=== PATIENT | male | born 1945 | race Caucasian/White ===

== ENCOUNTER 2021-10-27 10:58 | Inpatient (IN) | payer MEDICARE, OTHER ==
[~2021-10-27] VITALS: Ht 180.3 cm; Wt 100.2 kg
[~2021-10-27 10:58] MED LIST: DOXA2TAB2 PO; HYDR12.51 PO; LOT20 PO; METO25TA PO; NITR0.4T2 SL; SIMV-31 PO; [UNRECOGNIZED DRUG - CODE] PO
[2021-10-27 11:04] VITALS: BP 125/59
--- NOTE | 2021-10-27 11:04 | NUR ---
pt placed in wheelchair with nc 2L, saturation at 99%. pt placed in lobby at this time
--- NOTE | 2021-10-27 11:25 | NUR ---
76 y/o male biba from home, c/o gen weak 2 days. skin is pink/warm/dry. a&o x4, ambulates with assist, pt is in wheelchair at this time. lungs clear bl, heart rate even and regular. pt denies dysuria, hematuria, urinary frequency or retention, or anyone sick in the household with the same symptoms. pt denies any fever, cp, sob, or cough at this time. pt states pain is 0/10 at this time. vss. ermd made aware of pt. pmh: thyroid disease, cardiac disease, open heart sx, htn, dm2 allergy: penicillin
[2021-10-27 13:20] LABS: BASOPHILS % (AUTO) 0.4 % (0.0-2.0); EOSINOPHILS % (AUTO) 0.7 % (0.0-4.0); HEMATOCRIT 29.1 % (36-52); LYMPHOCYTES % (AUTO) 16.6 % (20.5-51.1); MEAN CORPUSCULAR HEMOGLOBIN 22 pg (27-31); MEAN CORPUSCULAR HGB CONC 31 g/dL (33-37); MEAN CORPUSCULAR VOLUME 72.6 fL (80-94); MONOCYTES # (AUTO) 0.4 K/uL (0.8-1.0); MONOCYTES % (AUTO) 6.9 % (1.7-9.3); NEUTROPHILS # (AUTO) 4.4 K/uL (1.8-7.7); NEUTROPHILS % (AUTO) 75.4 % (42.2-75.2); PLATELET COUNT (AUTO) 181 K/uL (140-450); RED BLOOD CELL COUNT(AUTO) 4.01 MIL/uL (4.20-6.10); RED CELL DISTRIBUTION WIDTH 16.3 % (11.6-13.7); WHITE BLOOD COUNT (AUTO) 5.8 K/uL (4.8-10.8)
--- NOTE | 2021-10-27 13:27 | NUR ---
pt unable to urinate at this time. will attempt at a later time. provided with urinal at bedside.
[2021-10-27 13:42] LABS: PROTHROMBIN TIME 10.3 secs (10.8-13.4)
[2021-10-27 13:59] LABS: CHLORIDE 98 mmol/L (98-107); POTASSIUM 4.8 mmol/L (3.5-5.1); SODIUM SERUM 138 mmol/L (136-145)
[2021-10-27 14:04] LABS: ANION GAP 15.1 (8-16); ASPARTATE AMINOTRANSFERASE 12 U/L (15-37); CARBON DIOXIDE 29.7 mmol/L (21-32); GLUCOSE 102 mg/dL (74-106); TOTAL BILIRUBIN 0.4 mg/dL (0.0-1.0); UREA NITROGEN, BLOOD 52 mg/dL (7-18)
[2021-10-27 14:05] LABS: ALBUMIN 3.6 g/dL (3.4-5.0)
[2021-10-27 14:57] LABS: BILIRUBIN,URINE NEGATIVE (NEGATIVE); BLOOD, URINE NEGATIVE (NEGATIVE); COLOR,URINE YELLOW (YELLOW); LEUKOCYTE ESTERASE ,URINE 2+ (NEGATIVE); NITRITE, URINE NEGATIVE (NEGATIVE); UGLUCOSE NEGATIVE (NEGATIVE)
[2021-10-27 15:10] LABS: APPEARANCE,URINE HAZY (CLEAR)
[2021-10-27 15:20] LABS: RBC,URINE NONE SEEN /HPF (0-5); WBC,URINE 80-100 /HPF (0-5)
--- NOTE | 2021-10-27 16:06 | NUR ---
PATIENT GIVEN JUICE PER ERMD VERBAL OKAY. PT TOLERATED WELL
[2021-10-27] MEDS ORDERED: ASPI-1822 PO (18:04)
[2021-10-27] MEDS ORDERED: SYN.05 PO (18:04)
[2021-10-27] MEDS ORDERED: SPIR50TA PO (18:04)
[2021-10-27] MEDS ORDERED: POTASSIUM CHLORIDE 10 MEQ TABER PO PRN (18:15)
[2021-10-27] MEDS ORDERED: KCL 20 MEQ/WATER INJ PREMIX 200 ML IV PRN (18:15)
[2021-10-27] MEDS ORDERED: HYDROcodone/APAP 5/325 MG 1 TAB TAB PO PRN (18:15)
[2021-10-27] MEDS ORDERED: ACETAMINOPHEN 325 MG TAB PO PRN (18:15)
[2021-10-27] MEDS ORDERED: MAGNESIUM OXIDE 400 MG TAB PO PRN (18:15)
[2021-10-27] MEDS ORDERED: ONDANSETRON 4 MG/2 ML VIAL IVP PRN (18:15)
[2021-10-27] MEDS ORDERED: MORPHINE SULFATE 4 MG/ML SYR IVP PRN (18:15)
[2021-10-27] MEDS ORDERED: MAG SULF 2000 MG/WATER PREMIX 50 ML IV PRN (18:15)
[2021-10-27] MEDS ORDERED: LEVOFLOXACIN 500 MG/D5W PREMIX 100 ML IV SCH (18:37)
--- NOTE | 2021-10-27 19:22 | NUR ---
PATIENT IN HIGH FOWLERS WITH EYES OPEN AND TALKING ON THE PHONE. NO S/S OF DISTRESS NOTED. VS WNL. DENIES C/P, SOB, DIFFICULTY BREATHING, AND PAIN. PATIENT AAOX4, AMBULATORY WITH A STEADY GAIT, ANTIBX RUNNING THROUGH LEFT AC 20 GAUGE- PATENT LINE WITH NO REDNESS, SWELLING, WARMTH, AND DISCHARGE. ATTACHED TO THE MONITOR, SAFETY MEASURES ARE IN PLACE, AND WILL CONTINUE TO MONITOR PATIENT.
[2021-10-27] MEDS: LORazepam 1 MG TAB PO PRN (23:03)
--- NOTE | 2021-10-28 04:02 | NUR ---
PATIENT ASKED FOR HELP TO GET OUT OF BED TO URINATE IN URINAL. PATIENT ABLE TO TOLERATE WELL. AAOX4. GCS15
--- NOTE | 2021-10-28 07:20 | NUR ---
Report and continution of care received from VIOLETTA Parrish.
--- NOTE | 2021-10-28 07:20 | NUR ---
Pt report given to Kaz SHIPLEY. Transfer of care at this time.
[2021-10-28 07:50] LABS: ANION GAP 12.7 (8-16); CARBON DIOXIDE 30.3 mmol/L (21-32); CHLORIDE 99 mmol/L (98-107); CREATININE 1.8 mg/dL (0.6-1.3); GLUCOSE 105 mg/dL (74-106); SODIUM SERUM 137 mmol/L (136-145); UREA NITROGEN, BLOOD 48 mg/dL (7-18)
--- NOTE | 2021-10-28 07:56 | NUR ---
Report and transfer of care given to VIOLETTA Falk
--- NOTE | 2021-10-28 08:00 | NUR ---
RECEIVED PT IN [facility] AOX4. DENIES PAIN OR DISCOMFORT. AFIB ON MONITOR. IV INTACT AND PATENT LEFT AC #20GUAGE SL. NAD. SAFETY MAINTAINED
[2021-10-28 08:04] LABS: BASOPHILS % (AUTO) 0.5 % (0.0-2.0); EOSINOPHILS # (AUTO) 0.1 K/uL (0-0.4); EOSINOPHILS % (AUTO) 1.4 % (0.0-4.0); HEMATOCRIT 29.4 % (36-52); HEMOGLOBIN 9.3 g/dL (12.0-18.0); LYMPHOCYTES # (AUTO) 0.9 K/uL (2.0-11.5); LYMPHOCYTES % (AUTO) 22.8 % (20.5-51.1); MEAN CORPUSCULAR HEMOGLOBIN 23 pg (27-31); MEAN CORPUSCULAR HGB CONC 32 g/dL (33-37); MEAN CORPUSCULAR VOLUME 71.6 fL (80-94); MONOCYTES # (AUTO) 0.3 K/uL (0.8-1.0); MONOCYTES % (AUTO) 7.5 % (1.7-9.3); NEUTROPHILS # (AUTO) 2.8 K/uL (1.8-7.7); NEUTROPHILS % (AUTO) 67.8 % (42.2-75.2); PLATELET COUNT (AUTO) 162 K/uL (140-450); RED BLOOD CELL COUNT(AUTO) 4.11 MIL/uL (4.20-6.10); RED CELL DISTRIBUTION WIDTH 16.1 % (11.6-13.7); WHITE BLOOD COUNT (AUTO) 4.1 K/uL (4.8-10.8)
[2021-10-28 09:30] VITALS: BP 116/61
--- NOTE | 2021-10-28 09:30 | NUR ---
PT WAS TRANSFERRED TO THE UNIT VIA GURNEY. PT IS AWAKE AND ALERT. ANSWERING QUESTIONS APPROPRIATELY. ON 2L O2 NC WITH BREATHING UNLBAORED. VS ARE STABLE. PT IS AMBULATORY WITH ASSIST. WOUND ON BILAT LE NOTED WITH DRESSING IN PLACE. WILL TAKE PICTURE SHORTLY. PT IS STABLE. PLAN OF CARE DISCUSSED.
--- NOTE | 2021-10-28 11:30 | NUR ---
PT IS AWAKE, NO DISTRESS NOTED. ON 2L O2 NC WITH BREATHING UNLABORED. DENIES ANY PAIN. BED IS IN THE LOWEST POSITION AND CALL LIGHT WITHIN REACH. WILL CONTINUE TO MONITOR.
[2021-10-28 12:00] VITALS: BP 116/60
--- NOTE | 2021-10-28 13:07 | NUR ---
DC PLANNING: THE PATIENT PRESENTED FROM HOME WITH C/O GENERALIZED WEAKNESS X 2 DAYS. H/O CABG, DM, CARDIAC DISEASE, HTN, PANCREATITIS, CAD. CXR SHOWS CARDIOMEGALY, ORDERS FOR URINE CULTURES. STARTED ON LEVAQUIN IV AND ATIVAN. ROSA SPOKE WITH THE PATIENT AT BEDSIDE AND CONFIRMED HIS ADDRESS AND PHONE NUMBER. HE LIVES IN A SECOND STORY APARTMENT WITH A FRIEND, AAKASH SCRUGGS ([phone]). HE STATES THAT AAKASH HELPS HIM WITH SHOPPING AND GENERAL CARE BUT WORKS AT NIGHT. HE ALSO HAS CONTACTS OF HIS NIECE IN [place], [place], PHONE [phone], AND HIS BROTHER OSVALDO IN [place], PHONE NUMBER [phone]. HE STATES THAT HE AMBULATES IN HIS APARTMENT USING A FWW AND HAS A GLUCOMETER BUT DOES NOT USE IT. THE PATIENT HAS BEEN ON SERVICE WITH [facility] WHICH THE PATIENT STATED WAS HOME HEALTH. ROSA SPOKE WITH [facility], HE WAS ON SERVICE BECAUSE OF HIS CARDIAC DISEASE BUT REVOKED HOSPICE WHO THEN HAD HIS DME PICKED UP INCLUDING O2. THE PATIENT SEES HIS PMD DR GLOVER INFREQUENTLY PER HIS STATEMENT AND USES A SHUTTLE ARRANGED THROUGH HIS INSURANCE. DC NEEDS OF HOME HEALTH, WILL NEED TO ASSESS FOR NEED FOR HOME O2. ROSA WILL FOLLOW. Addendum: 10/29/21 at 1102 by Ashly Gloria CM DC PLANNING: ROSA SPOKE WITH THE PATIENTS BROTHER OSVALDO AND CONFIRMED THE PATIENTS LIVING SITUATION. OSVALDO IS THE PATIENTS DPOA AND WILL ASSIST HIM IN NOVEMBER WITH REINSTATING HIS [facility] INSURANCE PATIENT BECAME MEDICARE UNDER HOSPICE, WHICH HAS BEEN REVOKED. ROSA LEFT FOR RADHA GUNDERSON, ROSA FOR [facility] TO GET CLARIFICATION ON PATIENTS DME THEY STATED YESTERDAY THAT THEY PICKED UP ALL DME ORDERED THROUGH THEM. ROSA ALSO ASKED FOR RA SATS WHEN PATIENT IS OOB WITH P.T. TO DETERMINE NEED FOR HOME O2. ROSA SPOKE WITH THE PATIENT AT BEDSIDE AND ENDORSED ABOVE, ROSA WILL FOLLOW. Addendum: 10/29/21 at 1419 by Ashly Gloria CM DC PLANNING: ROSA SPOKE WITH [facility], THEY HAVE NOT YET ARRANGED FOR LIME SPREADER OF PATIENTS DME INCLUDING 3 IN 1, SUCTION MACHINE, NEBULIZER MACHINE, CONCENTRATOR, E-TANKS AND HOSPITAL BED. ROSA ALSO SPOKE WITH THE PATIENT WHO STATES HE NEEDS O2 AND HOSPITAL BED AND HAS NO OTHER BED. HE HAS ALSO BEEN ON SERVICE WITH [facility] IN THE PAST. ROSA SPOKE WITH [facility] ([phone]), THEY ARE UNABLE TO SEE THE PATIENT FOR P.T. BECAUSE HE LIVES IN [place]. ROSA SPOKE WITH KERLINE AT [facility] TO DISCUSS CRITERIA FOR HOME O2 AND HOSPITAL BED THE PATIENT STATES THESE ARE THE ONLY ITEMS HE NEEDS. KERLINE GAVE CM VERBIAGE FOR ORDERS WHICH WERE ENTERED AND FAXED TO [facility]. ROSA WILL COORDINATE WITH [facility] AND [facility] REGARDING DME LIME SPREADER AND DELIVERY. ROSA SPOKE WITH THE PATIENT AT BEDSIDE AND ENDORSED THIS INCLUDING REFERRAL TO [facility] CANNOT ACCOMMODATE. PATIENT IS IN AGREEMENT WITH PLAN, ROSA WILL FOLLOW. Addendum: 10/30/21 at 1549 by Ashly Gloria CM DC PLANNING: PATIENT WILLING TO GO TO [facility], HAS BEEN AT [facility] IN THE PAST (LAST NOVEMBER). CORRECTION TO ROOMMATE AAKASH CISNEROS'S PHONE NUMBER [phone]. REFERRAL FAXED TO [facility]. ROSA HAS ASKED [facility] TO FAX MEDICARE JUSTIFICATION FORM FOR HOSPITAL BED MULTIPLE TIMES, FORM NOT YET RECEIVED. CM WILL FOLLOW Addendum: 10/30/21 at 1622 by Ashly Gloria CM DC PLANNING: ROSA F/U WITH [facility] ([phone]), PATIENT STILL BEING REVIEWED FOR ACCEPTANCE. ROSA WILL FOLLOW. Addendum: 10/30/21 at 1658 by Ashly Gloria CM DC PLANNING: PATIENT ACCEPTED [facility], PLEASE CALL FOR ROOM ASSIGNMENT. CM WILL FOLLOW.
--- NOTE | 2021-10-28 13:30 | NUR ---
PT'S LOWER EXTREMITIES BILAT ARE WRAPPED IN KERLIX UPON ADMISSION. KERLIX WAS REMOVED AND DRY/SCALY SKIN WAS NOTED DOWN TO THE TOES. CLOSED WOUND WAS CLEANSED WITH WOUND CARE CLEANSER SOLUTION AND PATTED DRY. LEFT CLOSED WOUND ISOLATION WASHER. PICTURE TAKEN AND PLACED IN THE CHART.
--- NOTE | 2021-10-28 15:31 | NUR ---
PATIENT HAS BEEN SCREENED AND CATEGORIZED HIGH NUTRITION RISK. PATIENT WILL BE SEEN WITHIN 1-2 DAYS OF ADMISSION. / REFERRAL RECEIVED FOR UNHEALED WOUNDS [address]
[2021-10-28 16:00] VITALS: BP 111/53
--- NOTE | 2021-10-28 16:00 | NUR ---
PT IS AWAKE, WATCHING TV. NO DISTRESS NOTED. BREATHING IS UNLABORED. IV IS INTACT AND PATENT. WILL MONITOR.
--- NOTE | 2021-10-28 19:40 | NUR ---
ENDORSED PT TO PERSONALIZED LIVING ASSISTANT NURSE FOR CONTINUITY OF CARE. PT IS STABLE. PLAN OF CARE DISCUSSED.
[2021-10-28 20:00] VITALS: BP 106/55
[2021-10-29] VITALS: BP 110/56
--- NOTE | 2021-10-29 01:08 | NUR ---
PATIENT AWAKE ALERT ROOM AIR SAT 99% TEMP 98 B/P 106/55. C/O OF GENERAL PAIN MEDICATED WITH MORPHINE 4 MG IVP 0 2330 PATIENT SLEEPING HAS 20 GA IN UPPER LEFT ARM.. PATIENT ON MONITOR A-FIB HEART RATE 58. NO DISTRESS NOTED.
[2021-10-29 04:00] VITALS: BP 112/58
[2021-10-29 06:54] LABS: BASOPHILS % (AUTO) 0.5 % (0.0-2.0); EOSINOPHILS # (AUTO) 0.1 K/uL (0-0.4); EOSINOPHILS % (AUTO) 1.8 % (0.0-4.0); HEMATOCRIT 28.5 % (36-52); HEMOGLOBIN 8.9 g/dL (12.0-18.0); LYMPHOCYTES # (AUTO) 1.2 K/uL (2.0-11.5); LYMPHOCYTES % (AUTO) 29.6 % (20.5-51.1); MEAN CORPUSCULAR HEMOGLOBIN 23 pg (27-31); MEAN CORPUSCULAR HGB CONC 31 g/dL (33-37); MEAN CORPUSCULAR VOLUME 72.7 fL (80-94); MONOCYTES # (AUTO) 0.4 K/uL (0.8-1.0); MONOCYTES % (AUTO) 9.4 % (1.7-9.3); NEUTROPHILS # (AUTO) 2.3 K/uL (1.8-7.7); NEUTROPHILS % (AUTO) 58.7 % (42.2-75.2); PLATELET COUNT (AUTO) 155 K/uL (140-450); RED BLOOD CELL COUNT(AUTO) 3.92 MIL/uL (4.20-6.10); RED CELL DISTRIBUTION WIDTH 16.7 % (11.6-13.7)
[2021-10-29 06:57] LABS: ANION GAP 9.5 (8-16); CARBON DIOXIDE 33.1 mmol/L (21-32); CHLORIDE 98 mmol/L (98-107); CREATININE 1.7 mg/dL (0.6-1.3); GLUCOSE 106 mg/dL (74-106); POTASSIUM 4.6 mmol/L (3.5-5.1); SODIUM SERUM 136 mmol/L (136-145); UREA NITROGEN, BLOOD 46 mg/dL (7-18)
--- NOTE | 2021-10-29 07:35 | NUR ---
RECEIVED BEDSIDE REPORT FROM WATERMASTER NURSE FOR CONTINUITY OF CARE. PT IS AWAKE AND ALERT, TALKING ON THE PHONE. BREATHING IS UNLABORED ON 2L O2 NC. CONTINENT OF THE BOWEL AND BLADDER WITH BEDSIDE COMMODE IN PLACE. NO PAIN NOTED AT THIS TIME. BILATERAL LE WOUNDS GADIEL. PT IS STABLE. PLAN OF CARE DISCUSSED.
[2021-10-29 08:00] VITALS: BP 117/48
[2021-10-29] MEDS: LEVOFLOXACIN 500 MG/D5W PREMIX 100 ML IV SCH (09:04)
--- NOTE | 2021-10-29 09:04 | NUR ---
PT RESTING ON BED, RESPIRATION EVEN, UNLABORED, ON 2L OXYGEN VIA NC. MEDICATION ADMINISTERED AT THIS TIME PER MD ORDER. PT TOLERATED WELL. CALL LIGHT WITHIN REACH. ALL SAFETY MEASURE IN PLACE, WILL CONTINUE TO MONITOR.
--- NOTE | 2021-10-29 11:00 | NUR ---
PT RESTING ON BED, ON 2L OXYGEN VIA NC, NO DISTRESS NOTED AT THIS TIME.
[2021-10-29 12:00] VITALS: BP 118/57
[2021-10-29] MEDS: POLYETHYLENE GLYCOL 17 GM/PKT PO SCH ×2 (12:20→21:00)
--- NOTE | 2021-10-29 13:00 | NUR ---
ON TELE MONITOR PT IS NOT LONGER BRADYCARDIC. HR IS 70 CONTROLLED AFIB.
--- NOTE | 2021-10-29 14:37 | NUR ---
10/29/21 RD INITIAL ASSESSMENT COMPLETED PLEASE REFER TO NUTRITION ASSESSMENT UNDER CARE ACTIVITY FOR ESTIMATED NUTRITIONAL NEEDS. 1. CONTINUE CARDIAC MECHANICAL SOFT DIET TOLERATED 2. RECOMMEND GLUCERNA BID FOR NUTRITION SUPPORT 3. RD TO FOLLOW-UP 7 DAYS, LOW RISK RORY [address]
--- NOTE | 2021-10-29 15:00 | NUR ---
PT RESTING ON BED, ON 2L OXYGEN VIA NC, NO DISTRESS NOTED. CALL LIGHT WITHIN REACH, WILL CONTINUE TO MONITOR.
[2021-10-29] MEDS ORDERED: NACL 0.9% 500 ML IV SCH (15:25)
[2021-10-29] MEDS ORDERED: NACL 0.9% 250 ML IV SCH (15:25)
[2021-10-29 16:00] VITALS: BP 126/44
[2021-10-29 16:11] LABS: APPEARANCE,URINE CLEAR (CLEAR); BILIRUBIN,URINE NEGATIVE (NEGATIVE); BLOOD, URINE NEGATIVE (NEGATIVE); COLOR,URINE YELLOW (YELLOW); LEUKOCYTE ESTERASE ,URINE 1+ (NEGATIVE); NITRITE, URINE NEGATIVE (NEGATIVE); UGLUCOSE NEGATIVE (NEGATIVE)
--- NOTE | 2021-10-29 16:21 | NUR ---
IV ON LEFT AC REMOVED DUE TO LEAKING, START NEW IV ON RIGHT HAND WITH 20G, PLUSH WITH NS, INTACT AND PATENT, START NS FLUID MD ORDERED.
[2021-10-29] MEDS: NACL 0.9% 1,000 ML IV SCH ×2 (16:25→21:38)
[2021-10-29 16:33] LABS: OTHER CASTS, URINE None Seen /LPF (None Seen); RBC,URINE 0-5 /HPF (0-5); WBC,URINE 0-5 /HPF (0-5)
--- NOTE | 2021-10-29 16:59 | NUR ---
P.T. NOTES P.T. EVAL COMPLETED; REFER TO EVAL FOR DETAILS.
--- NOTE | 2021-10-29 19:03 | NUR ---
PT RESTING ON BED, NO DISTRESS NOTED, CONTINUE 2L OXYGEN VIA NC, CALL LIGHT WITHIN REACH, WILL CONTINUE TO MONITOR.
--- NOTE | 2021-10-29 19:05 | NUR ---
PT POINT OF CARE DISCUSSED WITH NEXT SHIFT FOR CONTINUITY CARE.
--- NOTE | 2021-10-29 19:05 | NUR ---
ENDORSED PT TO CITY SECRETARY NURSE FOR CONTINUITY OF CARE. PT IS STABLE. PLAN OF CARE DISCUSSED.
[2021-10-29 20:00] VITALS: BP 105/60
--- NOTE | 2021-10-29 20:00 | NUR ---
PT LAYING IN BED IN SUPINE POSITION, HOB ELEVATED, NO SIGNS OF RESPIRATORY DISTRESS NOTED AT THIS TIME PT IS CURRENT SPO2 99% ON 2L N/C, NO LABORED BREATHING AND NO USE OF ACCESSORY MUSCLES NOTED. ANTERIOR AUSCULTATIONS REVEALED CLEAR BS THROUGHOUT ALL LUNG DALY, STRONG NON PRODUCTIVE COUGH NOTED, WILL CONTINUE TO MONITOR.
[2021-10-29] MEDS: LORazepam 1 MG TAB PO PRN (21:39)
[2021-10-30] VITALS: BP 110/66
--- NOTE | 2021-10-30 01:12 | NUR ---
PATIENT AWAKE ALERT NO C/O OF ACUTE PAIN A-FIB ON MONITOR. SAT 99% PATIENT TEMP 97.1 HAS NS INFUSING AT 70 HOUR. SITE 20 GA IN RIGHT ARM. PATIENT GIVEN MIRALAX HS DRINK WITH CUP OF WATER. PATIENT WITH NO SIGNS OF ACUTE DISTRESS.
[2021-10-30 04:00] VITALS: BP 106/70
[2021-10-30 07:02] LABS: BASOPHILS % (AUTO) 0.5 % (0.0-2.0); EOSINOPHILS # (AUTO) 0.1 K/uL (0-0.4); EOSINOPHILS % (AUTO) 1.3 % (0.0-4.0); HEMOGLOBIN 9.1 g/dL (12.0-18.0); LYMPHOCYTES # (AUTO) 1.2 K/uL (2.0-11.5); LYMPHOCYTES % (AUTO) 25.6 % (20.5-51.1); MEAN CORPUSCULAR HEMOGLOBIN 23 pg (27-31); MEAN CORPUSCULAR HGB CONC 31 g/dL (33-37); MEAN CORPUSCULAR VOLUME 73.1 fL (80-94); MONOCYTES # (AUTO) 0.5 K/uL (0.8-1.0); MONOCYTES % (AUTO) 10.6 % (1.7-9.3); NEUTROPHILS # (AUTO) 2.8 K/uL (1.8-7.7); PLATELET COUNT (AUTO) 146 K/uL (140-450); RED BLOOD CELL COUNT(AUTO) 3.97 MIL/uL (4.20-6.10); RED CELL DISTRIBUTION WIDTH 16.6 % (11.6-13.7); WHITE BLOOD COUNT (AUTO) 4.5 K/uL (4.8-10.8)
--- NOTE | 2021-10-30 07:25 | NUR ---
RECEIVED REPORT FROM WATER PURIFIER OPERATOR FOR CONTINUE CARE. PT RESTING ON BED, ALERT AND ORIENTED X4, ON 2L OXYGEN VIA NC, NO DISTRESS NOTED. IV ON RIGHT HAND INTACT AND PATENT, ALL SAFETY MEASURE IN PLACE, CALL LIGHT WITHIN REACH, WILL CONTINUE TO MONITOR.
[2021-10-30 07:37] LABS: ANION GAP 10.9 (8-16); CARBON DIOXIDE 29.6 mmol/L (21-32); CHLORIDE 102 mmol/L (98-107); CREATININE 1.7 mg/dL (0.6-1.3); GLUCOSE 113 mg/dL (74-106); POTASSIUM 4.5 mmol/L (3.5-5.1); SODIUM SERUM 138 mmol/L (136-145); UREA NITROGEN, BLOOD 40 mg/dL (7-18)
[2021-10-30 08:00] VITALS: BP 145/57
[2021-10-30] MEDS: POLYETHYLENE GLYCOL 17 GM/PKT PO SCH ×2 (08:21→20:35)
--- NOTE | 2021-10-30 11:05 | NUR ---
PT. ADMITTED WITH NO OPEN SKIN. BLE CHRONIC DRY SCALY SKIN RECOMMEND TO APPLY MOISTURIZER BID.
[2021-10-30] MEDS ORDERED: HYDRAGUARD CREAM TP ONE (11:24)
[2021-10-30 12:00] VITALS: BP 115/56
[2021-10-30] MEDS: NACL 0.45% 1,000 ML IV SCH (12:15)
[2021-10-30] MEDS: HYDRAGUARD CREAM TP SCH (12:38)
--- NOTE | 2021-10-30 12:38 | NUR ---
PT SITTING ON BED, ON 2L OXYGEN VIA NC, NO DISTRESS NOTED. HYDRA GUARD CREAM APPLIED TO BOTH LOWER LEG AND LOWER FEET AT ORDERED. HELL PROTECTOR PUT ON AND ELEVATE EACH FOOT WITH ONE PILLOW. CALL LIGHT WITHIN REACH.
--- NOTE | 2021-10-30 14:30 | NUR ---
PT RESTING ON BED WITH 2L OXYGEN VIA NC, NO DISTRESS NOTED. CALL LIGHT WITHIN REACH.
[2021-10-30 16:00] VITALS: BP 130/65
--- NOTE | 2021-10-30 17:06 | NUR ---
PT RESTING ON BED WATCHING TV, ON 2L OXYGEN VIA NC, NO DISTRESS NOTED. PT STATED HE STILL WAITING THE GRADUATE ASSISTANT ATHLETIC TRAINER TO TALK TO HIM REGARDING HIS PLACEMENT.
--- NOTE | 2021-10-30 18:41 | NUR ---
PT HAVING DINNER AT THIS TIME, ON 2L OXYGEN VIA NC, NO DISTRESS NOTED. CALL LIGHT WITHIN REACH
--- NOTE | 2021-10-30 19:02 | NUR ---
ENDORSED PT TO ACCOUNTING FILE CLERK NURSE FOR CONTINUITY OF CARE. PT IS STABLE. PLAN OF CARE DISCUSSED.
--- NOTE | 2021-10-30 19:10 | NUR ---
REPORT GIVEN TO [facility] NURSE FOR CONTINUITY CARE. POINT OF CARE DISCUSSED.
--- NOTE | 2021-10-30 19:15 | NUR ---
Received report from morning nurse. Patient resting on bed with O2 at 2L/NC, breathing even and unlabored. Patient alert and oriented, no complaints of pain. Will continue to monitor patient.
[2021-10-30 20:00] VITALS: BP 131/62
--- NOTE | 2021-10-30 22:07 | NUR ---
Patient resting on bed. Snacks given as requested. No further needs. Will continue to monitor.
[2021-10-31] VITALS: BP 149/61
[2021-10-31] MEDS: NACL 0.45% 1,000 ML IV SCH ×2 (01:21→15:55)
[2021-10-31] MEDS: HYDRAGUARD CREAM TP SCH ×2 (01:22→12:34)
--- NOTE | 2021-10-31 01:30 | NUR ---
Wound care done as ordered. No complaint of pain. New bag of 1/2 NS 1 L hung at the same rate of 75 ml/hr. No further needs.
[2021-10-31 04:00] VITALS: BP 126/53
--- NOTE | 2021-10-31 07:23 | NUR ---
PATIENT ENDORSED TO MORNING SHIFT RN. PATIENT RESTING COMFORTABLY ON BED, EYES CLOSED.
[2021-10-31 08:00] VITALS: BP 152/55
[2021-10-31] MEDS: LEVOFLOXACIN 500 MG/D5W PREMIX 100 ML IV SCH (08:39)
[2021-10-31] MEDS: POLYETHYLENE GLYCOL 17 GM/PKT PO SCH ×2 (08:44→21:00)
[2021-10-31] MEDS ORDERED: DEXTROSE 50% 50 ML SYR IVP PRN (08:50)
[2021-10-31] MEDS ORDERED: INSULIN LISPRO SLIDING SCALE 100 UNITS/ML VIAL SUBQ PRN (08:50)
[2021-10-31] MEDS ORDERED: LEVO750T51 PO (11:40)
--- NOTE | 2021-10-31 11:48 | NUR ---
SPOKE TO A[place]RIA FROM [facility] ON [phone] FOR DC TODAY. ALEXANDRIA STATED WILL CALL US BACK WITH TRANSPORT AND ETA, GAVE HER THE UNIT'S PHONE NUMBER, AWAITING FOR CALL BACK. .
[2021-10-31 12:00] VITALS: BP 128/51
--- NOTE | 2021-10-31 12:01 | NUR ---
SPOKE TO DR DOE REGARDING PER ALEXANDRIA WING [facility] THAT PT NEEDS A PROGRESS NOTE THAT PT IS OK TO DC TODAY SINCE PT DOES NOT QUALIFY THE [address] YET. PER DR DOE WE ARE GOING TO KEEP THE PT 1 MORE DAY AND DC TOMORROW. NOTIFIED ALEXANDRIA WITH 'S DECISION.
[2021-10-31] MEDS: BLOOD GLUCOSE MONITORING 1 DEV DEV FS SCH ×3 (12:20→21:00)
--- NOTE | 2021-10-31 14:56 | NUR ---
RECEIVED PHONE CALL FROM ALEXANDRIA [facility] REGARDING PT TRANSPORT IS SET UP TOMORROW BETWEEN [phone], [facility] BY [facility] [phone]
[2021-10-31 16:00] VITALS: BP 160/58
--- NOTE | 2021-10-31 19:30 | NUR ---
GIVEN BEDSIDE REPORT TO SECTION REPAIRER NURSE FOR CONTINUITY OF CARE
[2021-10-31 20:00] VITALS: BP 113/67
[2021-10-31] MEDS: LORazepam 1 MG TAB PO PRN (22:20)
[2021-11-01] VITALS: BP 116/67
[2021-11-01] MEDS: HYDRAGUARD CREAM TP SCH (01:30)
[2021-11-01 04:00] VITALS: BP 120/69
--- NOTE | 2021-11-01 04:06 | NUR ---
PATIENT IV CAME OUT OF HAND PATIENT REFUSE TO HAVE ANOTHER ONE PUT IN TONITE AT 0400 A.M. PATIENT STILL HAS NOT HAD A BOWEL MOVEMENT.
[2021-11-01] MEDS: BLOOD GLUCOSE MONITORING 1 DEV DEV FS SCH ×2 (06:51→11:30)
[2021-11-01 07:53] LABS: BASOPHILS % (AUTO) 0.3 % (0.0-2.0); EOSINOPHILS # (AUTO) 0.1 K/uL (0-0.4); EOSINOPHILS % (AUTO) 1.2 % (0.0-4.0); HEMOGLOBIN 8.7 g/dL (12.0-18.0); LYMPHOCYTES # (AUTO) 0.7 K/uL (2.0-11.5); LYMPHOCYTES % (AUTO) 14.7 % (20.5-51.1); MEAN CORPUSCULAR HEMOGLOBIN 23 pg (27-31); MEAN CORPUSCULAR HGB CONC 31 g/dL (33-37); MEAN CORPUSCULAR VOLUME 72.5 fL (80-94); MONOCYTES # (AUTO) 0.4 K/uL (0.8-1.0); MONOCYTES % (AUTO) 8.7 % (1.7-9.3); NEUTROPHILS # (AUTO) 3.4 K/uL (1.8-7.7); NEUTROPHILS % (AUTO) 75.1 % (42.2-75.2); PLATELET COUNT (AUTO) 158 K/uL (140-450); RED BLOOD CELL COUNT(AUTO) 3.86 MIL/uL (4.20-6.10); RED CELL DISTRIBUTION WIDTH 16.8 % (11.6-13.7); WHITE BLOOD COUNT (AUTO) 4.5 K/uL (4.8-10.8)
--- NOTE | 2021-11-01 08:04 | NUR ---
RECEIVED REPORT FROM MEDICAL RECORDS COORDINATOR NURSEJOSE: PT IN BED BREATHING EFFORTLESSLY USING O2 AT 2L VIA NC. NO IV ACCESS--NURSE REPORTED SAME WAS PULLED OUT DURING MEDICAL RECORDS COORDINATOR AND PT REFUSED TO HAVE IT REPLACED--SPOKE TO PT AND PER PT, "I'M GOING HOME TODAY SO NO NEED FOR IT." PT VERBALIZES COMFORT AND DENIES PAIN. CALL LIGHT IS WITHIN REACH.
[2021-11-01 08:10] LABS: ANION GAP 10.8 (8-16); CARBON DIOXIDE 28.3 mmol/L (21-32); CHLORIDE 107 mmol/L (98-107); CREATININE 1.4 mg/dL (0.6-1.3); GLUCOSE 111 mg/dL (74-106); POTASSIUM 5.1 mmol/L (3.5-5.1); SODIUM SERUM 141 mmol/L (136-145); UREA NITROGEN, BLOOD 28 mg/dL (7-18)
[2021-11-01] MEDS: POLYETHYLENE GLYCOL 17 GM/PKT PO SCH (09:00)
--- NOTE | 2021-11-01 09:43 | NUR ---
AM MED, HEPARIN, ADMIN, ORDERED. PT REFUSED MIRALAX AFTER JUST HAVING LARGE BM.
--- NOTE | 2021-11-01 11:30 | NUR ---
BLOOD GLUCOSE LEVEL 131, BY FINGERSTICK, NO INSULIN REQUIRED.
[2021-11-01 12:43] VITALS: BP 120/60
--- NOTE | 2021-11-01 13:30 | NUR ---
PT TRANSFERRED TO [facility] VIA AMBULANCE AFTER REPORT GIVEN TO NURSE CHAVES VIA PHONE. PT LEFT UNIT VIA GURNEY. VERBALIZED COMFORT AND DENIED PAIN. BREATHING EFFORTLESSLY WITH O2 IN PROGRESS VIA NC. DISCHARGE INSTRUCTION AND WRITTEN DISCHARGE PACKET PROVIDED.
== END 2021-11-01 13:38 | DRG 689 ==
LOC: MED 10:58 → MTU 21:23 → OBSVTOIN 10-29 17:10
PROVIDERS: ADMIT Student in an Organized Health Care Education/Training Program; ATTEND Student in an Organized Health Care Education/Training Program
DX: N39.0 Urinary tract infection, site not specified (principal); N17.0 Acute kidney failure with tubular necrosis; I25.10 Atherosclerotic heart disease of native coronary artery without angina pectoris; J45.909 Unspecified asthma, uncomplicated; I12.9 Hypertensive chronic kidney disease with stage 1 through stage 4 chronic kidney disease, or unspecified chronic kidney disease; E11.22 Type 2 diabetes mellitus with diabetic chronic kidney disease; N18.9 Chronic kidney disease, unspecified; D50.9 Iron deficiency anemia, unspecified; K59.00 Constipation, unspecified; E78.5 Hyperlipidemia, unspecified; Z20.822 Contact with and (suspected) exposure to COVID-19; E03.9 Hypothyroidism, unspecified; Z88.0 Allergy status to penicillin; Z88.8 Allergy status to other drugs, medicaments and biological substances; Z79.899 Other long term (current) drug therapy; Z95.1 Presence of aortocoronary bypass graft; Z79.82 Long term (current) use of aspirin; I95.9 Hypotension, unspecified
CPT/HCPCS: G0378 ×27; 36415; 36600; 71045; 76770; 80048; 80053; 81001; 82570; 82803; 82948; 83735; 83880; 84100; 84156; 84300; 84484; 85025; 85610; 85730; 87081; 87086; 87186; 93005; 97110; 97112; 97116; 97530; J1644; J1956; J2270; Q0092

== ENCOUNTER 2023-01-20 19:54 | Inpatient (IN) | payer OTHER ==
[~2023-01-20] VITALS: Ht 180.3 cm; Wt 103.4 kg
[2023-01-20 19:54] VITALS: BP 123/86; PULSE 106; RESP 18; TEMP 98; O2SAT 99
[~2023-01-20 19:54] MED LIST changes: +ASPI-1822 PO; +LEVO750T75 PO; +SPIR50TA PO; +SYN.05 PO
[2023-01-20 20:36] LABS: BASOPHILS % (AUTO) 0.1 % (0.0-2.0); EOSINOPHILS % (AUTO) 0.1 % (0.0-4.0); LYMPHOCYTES # (AUTO) 0.2 K/uL (2.0-11.5); LYMPHOCYTES % (AUTO) 3.4 % (20.5-51.1); MEAN CORPUSCULAR HEMOGLOBIN 23 pg (27-31); MEAN CORPUSCULAR HGB CONC 32 g/dL (33-37); MONOCYTES # (AUTO) 0.3 K/uL (0.8-1.0); MONOCYTES % (AUTO) 6.6 % (1.7-9.3); NEUTROPHILS # (AUTO) 4.1 K/uL (1.8-7.7); NEUTROPHILS % (AUTO) 89.8 % (42.2-75.2); PLATELET COUNT (AUTO) 179 K/uL (140-450); RED BLOOD CELL COUNT(AUTO) 2.36 MIL/uL (4.20-6.10); RED CELL DISTRIBUTION WIDTH 18.4 % (11.6-13.7); WHITE BLOOD COUNT (AUTO) 4.6 K/uL (4.8-10.8)
[2023-01-20 20:40] LABS: HEMOGLOBIN 5.4 g/dL (12.0-18.0)
[2023-01-20 20:54] LABS: ANION GAP 7.5 (8-16); CALCIUM 8.2 mg/dL (8.5-10.1); CARBON DIOXIDE 29.6 mmol/L (21-32); CHLORIDE 102 mmol/L (98-107); CREATININE 1.2 mg/dL (0.6-1.3); GLUCOSE 135 mg/dL (74-106); POTASSIUM 4.1 mmol/L (3.5-5.1); SODIUM SERUM 135 mmol/L (136-145); UREA NITROGEN, BLOOD 13 mg/dL (7-18)
[2023-01-20 21:19] LABS: INR 1.42 (0.8-1.2); PROTHROMBIN TIME 14.7 secs (10.8-13.4)
[2023-01-20] MEDS ORDERED: ACETAMINOPHEN 325 MG TAB PO PRN (23:20)
[2023-01-20] MEDS ORDERED: POTASSIUM CHLORIDE 10 MEQ TABER PO PRN (23:20)
[2023-01-20] MEDS ORDERED: KCL 20 MEQ IN 100 mL PREMIX 200 ML IV PRN (23:20)
[2023-01-20] MEDS ORDERED: MAG SULF 2000 MG/WATER PREMIX 50 ML IV PRN (23:20)
[2023-01-20] MEDS ORDERED: MAGNESIUM OXIDE 400 MG TAB PO PRN (23:20)
[2023-01-21] VITALS (14 sets, daily range): BP systolic 113–142; BP diastolic 67–78; PULSE 83–101; RESP 16–22; TEMP 96.7–97.8; O2SAT 94–100
[2023-01-21] MEDS: HYDROcodone/APAP 5/325 MG 1 TAB TAB PO PRN ×2 (04:19→15:45)
[2023-01-21 07:06] LABS: BASOPHILS % (AUTO) 0.1 % (0.0-2.0); EOSINOPHILS % (AUTO) 0.2 % (0.0-4.0); HEMATOCRIT 21.1 % (36-52); LYMPHOCYTES # (AUTO) 0.4 K/uL (2.0-11.5); LYMPHOCYTES % (AUTO) 8.1 % (20.5-51.1); MEAN CORPUSCULAR HEMOGLOBIN 24 pg (27-31); MEAN CORPUSCULAR HGB CONC 32 g/dL (33-37); MEAN CORPUSCULAR VOLUME 74.2 fL (80-94); MONOCYTES # (AUTO) 0.4 K/uL (0.8-1.0); MONOCYTES % (AUTO) 7.4 % (1.7-9.3); NEUTROPHILS # (AUTO) 4.6 K/uL (1.8-7.7); NEUTROPHILS % (AUTO) 84.2 % (42.2-75.2); PLATELET COUNT (AUTO) 178 K/uL (140-450); RED BLOOD CELL COUNT(AUTO) 2.85 MIL/uL (4.20-6.10); RED CELL DISTRIBUTION WIDTH 18.6 % (11.6-13.7); WHITE BLOOD COUNT (AUTO) 5.4 K/uL (4.8-10.8)
[2023-01-21 07:17] LABS: ANION GAP 7.1 (8-16); CARBON DIOXIDE 30.1 mmol/L (21-32); CHLORIDE 102 mmol/L (98-107); CREATININE 1.2 mg/dL (0.6-1.3); GLUCOSE 95 mg/dL (74-106); POTASSIUM 4.2 mmol/L (3.5-5.1); SODIUM SERUM 135 mmol/L (136-145); UREA NITROGEN, BLOOD 13 mg/dL (7-18)
[2023-01-21 07:23] LABS: MAGNESIUM 1.9 mg/dL (1.8-2.4)
[2023-01-21 07:25] LABS: HEMOGLOBIN 6.8 g/dL (12.0-18.0)
[2023-01-21] MEDS ORDERED: DEXTROSE 50% 50 ML SYR IVP PRN (08:10)
[2023-01-21] MEDS ORDERED: INSULIN LISPRO SLIDING SCALE 100 UNITS/ML VIAL SUBQ PRN (08:10)
[2023-01-21] MEDS: DEXT 5% / NACL 0.45% 1,000 ML IV SCH (08:30)
[2023-01-21] MEDS: PANTOPRAZOLE 40 MG INJ VIAL IVP SCH (08:30)
[2023-01-21] MEDS ORDERED: NITROGLYCERIN 0.4 MG TAB SL SCH (09:05)
[2023-01-21] MEDS: BLOOD GLUCOSE MONITORING 1 DEV DEV FS SCH ×3 (11:40→20:44)
[2023-01-21] MEDS: LACTULOSE 20 GM/30 ML UDC PO SCH ×2 (12:24→16:09)
[2023-01-21] MEDS: SENNA 8.6 MG TAB PO SCH ×3 (12:25→20:51)
[2023-01-21 16:18] LABS: HEMATOCRIT 23.9 % (36-52); HEMOGLOBIN 7.6 g/dL (12.0-18.0)
[2023-01-21] MEDS: hydroCHLOROthiazide 25 MG TAB PO SCH (20:47)
[2023-01-21] MEDS: DOXAZOSIN 2 MG TAB PO SCH (20:48)
[2023-01-21] MEDS: METOPROLOL 25 MG TAB PO SCH (20:48)
[2023-01-21] MEDS: FELODIPINE 2.5 MG PO SCH (20:50)
[2023-01-21] MEDS ORDERED: SIMVASTATIN 20 MG TAB PO SCH (21:00)
[2023-01-22] VITALS (16 sets, daily range): BP systolic 110–133; BP diastolic 56–70; PULSE 78–100; RESP 16–18; TEMP 96.9–98.7; O2SAT 95–100
[2023-01-22] MEDS: DEXT 5% / NACL 0.45% 1,000 ML IV SCH ×2 (01:34→06:37)
[2023-01-22] MEDS: LEVOTHYROXINE 0.05 MG TAB PO SCH (06:30)
[2023-01-22 06:33] LABS: BASOPHILS % (AUTO) 0.1 % (0.0-2.0); EOSINOPHILS % (AUTO) 0.3 % (0.0-4.0); HEMATOCRIT 23.3 % (36-52); HEMOGLOBIN 7.4 g/dL (12.0-18.0); LYMPHOCYTES # (AUTO) 0.4 K/uL (2.0-11.5); LYMPHOCYTES % (AUTO) 6.1 % (20.5-51.1); MEAN CORPUSCULAR HEMOGLOBIN 24 pg (27-31); MEAN CORPUSCULAR HGB CONC 32 g/dL (33-37); MEAN CORPUSCULAR VOLUME 75.7 fL (80-94); MONOCYTES # (AUTO) 0.4 K/uL (0.8-1.0); MONOCYTES % (AUTO) 6.3 % (1.7-9.3); NEUTROPHILS # (AUTO) 5.2 K/uL (1.8-7.7); NEUTROPHILS % (AUTO) 87.2 % (42.2-75.2); PLATELET COUNT (AUTO) 170 K/uL (140-450); RED BLOOD CELL COUNT(AUTO) 3.08 MIL/uL (4.20-6.10); RED CELL DISTRIBUTION WIDTH 18.3 % (11.6-13.7)
[2023-01-22] MEDS: BLOOD GLUCOSE MONITORING 1 DEV DEV FS SCH ×4 (06:35→20:43)
[2023-01-22 06:49] LABS: ANION GAP 9.5 (8-16); CALCIUM 8.1 mg/dL (8.5-10.1); CARBON DIOXIDE 28.4 mmol/L (21-32); CHLORIDE 104 mmol/L (98-107); CREATININE 1.2 mg/dL (0.6-1.3); GLUCOSE 108 mg/dL (74-106); POTASSIUM 3.9 mmol/L (3.5-5.1); SODIUM SERUM 138 mmol/L (136-145); UREA NITROGEN, BLOOD 12 mg/dL (7-18)
[2023-01-22 06:53] LABS: MAGNESIUM 1.9 mg/dL (1.8-2.4); PHOSPHORUS 3.3 mg/dL (2.5-4.9)
[2023-01-22] MEDS: PANTOPRAZOLE 40 MG INJ VIAL IVP SCH (08:28)
[2023-01-22] MEDS: DOXAZOSIN 2 MG TAB PO SCH ×2 (08:28→20:38)
[2023-01-22] MEDS: METOPROLOL 25 MG TAB PO SCH (08:29)
[2023-01-22] MEDS: hydroCHLOROthiazide 25 MG TAB PO SCH (08:29)
[2023-01-22] MEDS: LACTULOSE 20 GM/30 ML UDC PO SCH ×2 (08:29→08:52)
[2023-01-22] MEDS: BENAZEPRIL 20 MG TAB PO SCH (08:29)
[2023-01-22] MEDS: SENNA 8.6 MG TAB PO SCH ×2 (08:30→08:52)
[2023-01-22] MEDS: FELODIPINE 2.5 MG PO SCH (08:30)
[2023-01-22] MEDS ORDERED: SPIRONOLACTONE 50 MG TAB PO SCH (09:00)
[2023-01-22] MEDS ORDERED: diphenhydrAMINE 50 MG/ML VIAL ONE (09:27)
[2023-01-22] MEDS ORDERED: fentaNYL citrate 0.05 MG/ML VIAL ONE (09:27)
[2023-01-22] MEDS ORDERED: MIDAZOLAM 5 MG/5 ML VIAL ONE (09:28)
[2023-01-22] MEDS: SODIUM FERRIC GLUCONATE 125 MG in NACL 0.9% 100 ML IV SCH (11:17)
[2023-01-22] MEDS ORDERED: fentaNYL citrate 0.05 MG/ML VIAL IVP ONE (13:05)
[2023-01-22] MEDS ORDERED: MIDAZOLAM 2 MG/2 ML VIAL IVP ONE (13:05)
[2023-01-22] MEDS: ONDANSETRON 4 MG/2 ML VIAL IVP PRN (18:16)
[2023-01-23] VITALS (11 sets, daily range): BP systolic 99–128; BP diastolic 56–63; PULSE 84–104; RESP 16–20; TEMP 97.7–98.7; O2SAT 97–100
[2023-01-23] MEDS: LEVOTHYROXINE 0.05 MG TAB PO SCH (06:35)
[2023-01-23] MEDS: BLOOD GLUCOSE MONITORING 1 DEV DEV FS SCH ×4 (06:37→20:56)
[2023-01-23 07:32] LABS: BASOPHILS % (AUTO) 0.1 % (0.0-2.0); EOSINOPHILS % (AUTO) 0.6 % (0.0-4.0); HEMATOCRIT 22.8 % (36-52); HEMOGLOBIN 7.3 g/dL (12.0-18.0); LYMPHOCYTES # (AUTO) 0.4 K/uL (2.0-11.5); LYMPHOCYTES % (AUTO) 6.9 % (20.5-51.1); MEAN CORPUSCULAR HEMOGLOBIN 24 pg (27-31); MEAN CORPUSCULAR HGB CONC 32 g/dL (33-37); MEAN CORPUSCULAR VOLUME 74.8 fL (80-94); MONOCYTES # (AUTO) 0.4 K/uL (0.8-1.0); MONOCYTES % (AUTO) 6.3 % (1.7-9.3); NEUTROPHILS # (AUTO) 4.8 K/uL (1.8-7.7); NEUTROPHILS % (AUTO) 86.1 % (42.2-75.2); PLATELET COUNT (AUTO) 149 K/uL (140-450); RED BLOOD CELL COUNT(AUTO) 3.04 MIL/uL (4.20-6.10); RED CELL DISTRIBUTION WIDTH 18.7 % (11.6-13.7); WHITE BLOOD COUNT (AUTO) 5.6 K/uL (4.8-10.8)
[2023-01-23 07:35] LABS: MAGNESIUM 1.8 mg/dL (1.8-2.4); PHOSPHORUS 3.1 mg/dL (2.5-4.9)
[2023-01-23 08:06] LABS: CARCINOEMBRYONIC AG 1.5 ng/mL (0.0-4.7)
[2023-01-23 08:14] LABS: ANION GAP 10.3 (8-16); CALCIUM 7.8 mg/dL (8.5-10.1); CARBON DIOXIDE 26.6 mmol/L (21-32); CHLORIDE 102 mmol/L (98-107); CREATININE 1.2 mg/dL (0.6-1.3); GLUCOSE 88 mg/dL (74-106); POTASSIUM 3.9 mmol/L (3.5-5.1); SODIUM SERUM 135 mmol/L (136-145); UREA NITROGEN, BLOOD 14 mg/dL (7-18)
[2023-01-23] MEDS: ONDANSETRON 4 MG/2 ML VIAL IVP PRN ×2 (08:26→22:48)
[2023-01-23] MEDS: PANTOPRAZOLE 40 MG INJ VIAL IVP SCH (08:26)
[2023-01-23] MEDS: POTASSIUM CHLORIDE 20% 40 MEQ/15 ML UDC GT SCH (08:26)
[2023-01-23] MEDS: DOXAZOSIN 2 MG TAB PO SCH ×2 (08:27→21:00)
[2023-01-23] MEDS: BENAZEPRIL 20 MG TAB PO SCH (08:27)
[2023-01-23] MEDS ORDERED: FUROSEMIDE 20 MG/2 ML VIAL IVP SCH (09:00)
[2023-01-23] MEDS: SODIUM FERRIC GLUCONATE 125 MG in NACL 0.9% 100 ML IV SCH (11:42)
[2023-01-23 19:59] LABS: HEMATOCRIT 25.8 % (36-52); HEMOGLOBIN 8.2 g/dL (12.0-18.0)
[2023-01-24 04:00] VITALS: BP 116/60; PULSE 99; RESP 20; TEMP 97.8; O2SAT 100
[2023-01-24] MEDS: LEVOTHYROXINE 0.05 MG TAB PO SCH (05:54)
[2023-01-24] MEDS: BLOOD GLUCOSE MONITORING 1 DEV DEV FS SCH ×2 (05:57→20:51)
[2023-01-24 08:00] VITALS: PULSE 96; RESP 19; O2SAT 100; O2SAT 97
[2023-01-24] MEDS ORDERED: fentaNYL citrate 0.05 MG/ML VIAL ONE (08:55)
[2023-01-24] MEDS ORDERED: MIDAZOLAM 2 MG/2 ML VIAL ONE (08:55)
[2023-01-24] MEDS: POTASSIUM CHLORIDE 20% 40 MEQ/15 ML UDC GT SCH (09:00)
[2023-01-24] MEDS: BENAZEPRIL 20 MG TAB PO SCH (09:00)
[2023-01-24] MEDS ORDERED: VANCOMYCIN 1,000 MG VIAL ONE (09:30)
[2023-01-24] MEDS ORDERED: VANCOMYCIN PER PHARMACY MC PRN (09:30)
[2023-01-24] MEDS ORDERED: VANCOMYCIN 1GM/DEXT 5% PREMIX 200 ML IV ONE ×2 (09:30)
[2023-01-24 10:50] LABS: BASOPHILS % (AUTO) 0.3 % (0.0-2.0); EOSINOPHILS % (AUTO) 0.4 % (0.0-4.0); HEMATOCRIT 25.4 % (36-52); HEMOGLOBIN 8.1 g/dL (12.0-18.0); LYMPHOCYTES # (AUTO) 0.4 K/uL (2.0-11.5); LYMPHOCYTES % (AUTO) 6.6 % (20.5-51.1); MEAN CORPUSCULAR HEMOGLOBIN 24 pg (27-31); MEAN CORPUSCULAR HGB CONC 32 g/dL (33-37); MEAN CORPUSCULAR VOLUME 75.9 fL (80-94); MONOCYTES # (AUTO) 0.4 K/uL (0.8-1.0); MONOCYTES % (AUTO) 6.9 % (1.7-9.3); NEUTROPHILS # (AUTO) 5.5 K/uL (1.8-7.7); NEUTROPHILS % (AUTO) 85.8 % (42.2-75.2); PLATELET COUNT (AUTO) 147 K/uL (140-450); RED BLOOD CELL COUNT(AUTO) 3.35 MIL/uL (4.20-6.10); RED CELL DISTRIBUTION WIDTH 19.6 % (11.6-13.7); WHITE BLOOD COUNT (AUTO) 6.4 K/uL (4.8-10.8)
[2023-01-24] MEDS ORDERED: MIDAZOLAM 2 MG/2 ML VIAL IV ONE (10:50)
[2023-01-24] MEDS ORDERED: fentaNYL citrate 0.05 MG/ML VIAL IVP ONE (10:50)
[2023-01-24 11:05] LABS: ANION GAP 9.2 (8-16); CHLORIDE 103 mmol/L (98-107); CREATININE 1.4 mg/dL (0.6-1.3); GLUCOSE 84 mg/dL (74-106); POTASSIUM 4.2 mmol/L (3.5-5.1); SODIUM SERUM 136 mmol/L (136-145); UREA NITROGEN, BLOOD 19 mg/dL (7-18)
[2023-01-24 11:10] LABS: MAGNESIUM 1.8 mg/dL (1.8-2.4); PHOSPHORUS 3.3 mg/dL (2.5-4.9)
[2023-01-24 12:00] VITALS: PULSE 95; RESP 19; TEMP 98.1; O2SAT 99
[2023-01-24] MEDS: SODIUM FERRIC GLUCONATE 125 MG in NACL 0.9% 100 ML IV SCH (13:33)
[2023-01-24] MEDS ORDERED: HYDRAGUARD CREAM TP SCH (16:20)
[2023-01-24 20:00] VITALS: BP 122/53; PULSE 103; RESP 19; TEMP 98.6; O2SAT 93; O2SAT 99
[2023-01-24] MEDS: DOXAZOSIN 2 MG TAB PO SCH (20:46)
[2023-01-25 04:00] VITALS: BP 107/58; PULSE 95; RESP 19; TEMP 98.2; O2SAT 100
[2023-01-25] MEDS: LEVOTHYROXINE 0.05 MG TAB PO SCH (05:59)
[2023-01-25] MEDS: BLOOD GLUCOSE MONITORING 1 DEV DEV FS SCH ×4 (06:34→21:10)
[2023-01-25 08:00] VITALS: BP 125/73; PULSE 82; PULSE 97; PULSE 98; RESP 18; RESP 19; TEMP 97.9; O2SAT 100; O2SAT 96; O2SAT 99
[2023-01-25] MEDS ORDERED: FUROSEMIDE 40 MG/5 ML ORAL SOL UDC GT SCH (09:00)
[2023-01-25] MEDS: POTASSIUM CHLORIDE 20% 40 MEQ/15 ML UDC GT SCH (09:11)
[2023-01-25] MEDS: BENAZEPRIL 20 MG TAB PO SCH (09:12)
[2023-01-25 10:49] LABS: BASOPHILS % (AUTO) 0.2 % (0.0-2.0); EOSINOPHILS % (AUTO) 0.3 % (0.0-4.0); HEMATOCRIT 25.3 % (36-52); HEMOGLOBIN 8.1 g/dL (12.0-18.0); LYMPHOCYTES # (AUTO) 0.5 K/uL (2.0-11.5); LYMPHOCYTES % (AUTO) 7.6 % (20.5-51.1); MEAN CORPUSCULAR HEMOGLOBIN 24 pg (27-31); MEAN CORPUSCULAR HGB CONC 32 g/dL (33-37); MEAN CORPUSCULAR VOLUME 76.1 fL (80-94); MONOCYTES # (AUTO) 0.4 K/uL (0.8-1.0); MONOCYTES % (AUTO) 6.8 % (1.7-9.3); NEUTROPHILS # (AUTO) 5.5 K/uL (1.8-7.7); NEUTROPHILS % (AUTO) 85.1 % (42.2-75.2); PLATELET COUNT (AUTO) 154 K/uL (140-450); RED BLOOD CELL COUNT(AUTO) 3.32 MIL/uL (4.20-6.10); RED CELL DISTRIBUTION WIDTH 20.2 % (11.6-13.7); WHITE BLOOD COUNT (AUTO) 6.5 K/uL (4.8-10.8)
[2023-01-25 11:02] LABS: ANION GAP 9.1 (8-16); CARBON DIOXIDE 29.8 mmol/L (21-32); CHLORIDE 102 mmol/L (98-107); CREATININE 1.8 mg/dL (0.6-1.3); GLUCOSE 119 mg/dL (74-106); POTASSIUM 4.9 mmol/L (3.5-5.1); SODIUM SERUM 136 mmol/L (136-145); UREA NITROGEN, BLOOD 27 mg/dL (7-18)
[2023-01-25] MEDS: ONDANSETRON 4 MG/2 ML VIAL IVP PRN (11:03)
[2023-01-25 11:06] LABS: MAGNESIUM 1.9 mg/dL (1.8-2.4)
[2023-01-25 20:00] VITALS: BP 109/45; PULSE 93; PULSE 99; RESP 18; TEMP 97.8; O2SAT 100; O2SAT 99
[2023-01-25] MEDS: DOXAZOSIN 2 MG TAB PO SCH (21:10)
[2023-01-25] MEDS: FERROUS SULFATE 300 MG/5 ML UDC GT SCH (21:10)
[2023-01-26 04:00] VITALS: BP 100/44; PULSE 91; RESP 17; TEMP 98; O2SAT 100
[2023-01-26 05:27] VITALS: O2SAT 100
[2023-01-26] MEDS: LEVOTHYROXINE 0.05 MG TAB PO SCH (06:44)
[2023-01-26] MEDS: BLOOD GLUCOSE MONITORING 1 DEV DEV FS SCH ×4 (06:52→22:18)
[2023-01-26 08:00] VITALS: BP 109/53; PULSE 89; RESP 18; TEMP 97.2; O2SAT 100; O2SAT 99
[2023-01-26 08:07] VITALS: O2SAT 99
[2023-01-26] MEDS: BENAZEPRIL 20 MG TAB PO SCH (09:00)
[2023-01-26] MEDS: FERROUS SULFATE 300 MG/5 ML UDC GT SCH ×2 (09:57→22:22)
[2023-01-26 20:00] VITALS: BP 120/65; PULSE 65; RESP 18; TEMP 98; O2SAT 98; O2SAT 99
[2023-01-26 20:12] VITALS: PULSE 92; RESP 18; O2SAT 100; O2SAT 99
[2023-01-26] MEDS: DOXAZOSIN 2 MG TAB PO SCH (22:22)
[2023-01-27 04:00] VITALS: BP 112/60; PULSE 66; RESP 18; TEMP 98.7; O2SAT 99
[2023-01-27] MEDS ORDERED: KETOROLAC 30 MG/ML VIAL IM ONE (04:05)
[2023-01-27] MEDS: LEVOTHYROXINE 0.05 MG TAB PO SCH (07:10)
[2023-01-27] MEDS: BLOOD GLUCOSE MONITORING 1 DEV DEV FS SCH ×2 (07:10→11:30)
[2023-01-27 08:00] VITALS: PULSE 85; RESP 18; O2SAT 100; O2SAT 99
[2023-01-27 08:33] VITALS: O2SAT 100
[2023-01-27] MEDS: FERROUS SULFATE 300 MG/5 ML UDC GT SCH (10:30)
[2023-01-27] MEDS: BENAZEPRIL 20 MG TAB PO SCH (10:31)
[2023-01-27 12:00] VITALS: BP 105/59; PULSE 85; RESP 18; TEMP 97.8; O2SAT 100
[2023-01-28] MEDS ORDERED: ACET-8905 PO (17:05)
== END 2023-01-27 17:25 | DRG 378 ==
LOC: MED 19:54 → MTU 23:24
PROVIDERS: ADMIT Internal Medicine; ATTEND Internal Medicine
PROC: 30233N1 Transfusion of Nonautologous Red Blood Cells into Peripheral Vein, Percutaneous Approach (ICD-10-PCS; 2023-01-20)
PROC: 0DB38ZX Excision of Lower Esophagus, Via Natural or Artificial Opening Endoscopic, Diagnostic (ICD-10-PCS; 2023-01-22)
PROC: 0DH68UZ Insertion of Feeding Device into Stomach, Via Natural or Artificial Opening Endoscopic (ICD-10-PCS; principal; 2023-01-24 10:00)
DX: K92.2 Gastrointestinal hemorrhage, unspecified (principal); C15.9 Malignant neoplasm of esophagus, unspecified; C78.7 Secondary malignant neoplasm of liver and intrahepatic bile duct; D50.9 Iron deficiency anemia, unspecified; J45.909 Unspecified asthma, uncomplicated; E11.9 Type 2 diabetes mellitus without complications; E78.5 Hyperlipidemia, unspecified; N40.0 Benign prostatic hyperplasia without lower urinary tract symptoms; I25.10 Atherosclerotic heart disease of native coronary artery without angina pectoris; E03.9 Hypothyroidism, unspecified; F79 Unspecified intellectual disabilities; I11.0 Hypertensive heart disease with heart failure; I50.9 Heart failure, unspecified; R13.10 Dysphagia, unspecified; Z88.0 Allergy status to penicillin; Z95.1 Presence of aortocoronary bypass graft; Z51.5 Encounter for palliative care
CPT/HCPCS: 36415; 36430; 70450; 71101; 71260; 72125; 72170; 80048; 82105; 82272; 82378; 82728; 82948; 83540; 83735; 84100; 85018; 85025; 85610; 86886; 86900; 86901; 86920; 87081; 88305; 88312; 88313; 88342; 90471; 90715; 93005; 97112; 97116; 97163-GP; 97530; 99291; C9113; J1200; J1815; J1885; J1940; J2250; J2405; J2916; J3010; J3370; J7120; P9016; Q9967

== ENCOUNTER 2023-01-28 14:09 | Emergency (ER) | payer OTHER ==
[~2023-01-28] VITALS: Ht 175.3 cm; Wt 81.6 kg
[2023-01-28 14:29] VITALS: BP 118/56; PULSE 74; RESP 18; TEMP 97; O2SAT 98
[2023-01-28 14:36] VITALS: O2SAT 98
[2023-01-28 15:00] LABS: BASOPHILS % (AUTO) 0.2 % (0.0-2.0); EOSINOPHILS % (AUTO) 0.7 % (0.0-4.0); HEMATOCRIT 23.4 % (36-52); HEMOGLOBIN 7.5 g/dL (12.0-18.0); LYMPHOCYTES # (AUTO) 0.6 K/uL (2.0-11.5); LYMPHOCYTES % (AUTO) 8.9 % (20.5-51.1); MEAN CORPUSCULAR HEMOGLOBIN 25 pg (27-31); MEAN CORPUSCULAR HGB CONC 32 g/dL (33-37); MEAN CORPUSCULAR VOLUME 76.8 fL (80-94); MONOCYTES # (AUTO) 0.4 K/uL (0.8-1.0); MONOCYTES % (AUTO) 5.8 % (1.7-9.3); NEUTROPHILS # (AUTO) 5.4 K/uL (1.8-7.7); NEUTROPHILS % (AUTO) 84.4 % (42.2-75.2); PLATELET COUNT (AUTO) 154 K/uL (140-450); RED BLOOD CELL COUNT(AUTO) 3.05 MIL/uL (4.20-6.10); RED CELL DISTRIBUTION WIDTH 21.4 % (11.6-13.7); WHITE BLOOD COUNT (AUTO) 6.4 K/uL (4.8-10.8)
[2023-01-28 15:09] LABS: ANION GAP 8.8 (8-16); CARBON DIOXIDE 30.1 mmol/L (21-32); CHLORIDE 103 mmol/L (98-107); CREATININE 2.1 mg/dL (0.6-1.3); GLUCOSE 101 mg/dL (74-106); POTASSIUM 5.9 mmol/L (3.5-5.1); SODIUM SERUM 136 mmol/L (136-145); UREA NITROGEN, BLOOD 52 mg/dL (7-18)
[2023-01-28 15:24] VITALS: BP 95/45; PULSE 75; RESP 22; TEMP 97.6
[2023-01-28] MEDS ORDERED: SODIUM ZIRCONIUM CYCLOSILICATE 10 GM POWD.PACK GT ONE (15:25)
[2023-01-28 16:38] VITALS: O2SAT 100
[2023-01-28] MEDS ORDERED: ACET-8905 PO (17:05)
[2023-01-28] MEDS ORDERED: MORPHINE SULFATE 4 MG/ML SYR IM ONE (17:10)
[2023-01-28 18:32] VITALS: O2SAT 100
== END 2023-01-28 19:03 | disposition home or self-care (01) ==
LOC: MED 14:09
DX: D64.9 Anemia, unspecified (principal); E87.5 Hyperkalemia; J45.909 Unspecified asthma, uncomplicated; I10 Essential (primary) hypertension; Z98.890 Other specified postprocedural states; Z79.899 Other long term (current) drug therapy; Z79.82 Long term (current) use of aspirin; Z88.0 Allergy status to penicillin
CPT/HCPCS: 36415; 80048; 85025; 96372; 99285; J2270